=== PATIENT | female | born 1980 | race African-American/Black ===

== ENCOUNTER 2016-08-30 10:05 | Emergency (ER) | payer OTHER ==
[~2016-08-30] VITALS: Ht 175.3 cm; Wt 98.9 kg
[~2016-08-30 10:05] MED LIST: CIPROFLOXACIN500 M1 PO; CITRATE OF MAG296 ML PO; COLACE 100 MG100 MG PO; GLUCOPHAGE XR750 MG PO; MULTI-VITAMIN1 EAC5; NORCO 5-325 TA1 EACH PO; PRINZIDE 20-121 EACH PO; TAMSULOSIN HCL0.4 M1 PER TUBE; TAMSULOSIN HCL0.4 MG PO; ZOFRAN ODT4 MG PO
[2016-08-30 10:36] VITALS: BP 151/71
[2016-08-30] MEDS ORDERED: FLONASE 0.05%50 MCG NASAL (11:13)
[2016-08-30] MEDS ORDERED: IBUPROFEN 600600 M1 PO (11:13)
[2016-10-15] MEDS ORDERED: ZYRTEC10 M5 PO (18:43)
[2016-10-15] MEDS ORDERED: EMERGEN-C 1,01000 MG PO (18:43)
[2016-10-15] MEDS ORDERED: FLONASE 0.05%50 MCG NASAL (19:46)
[2016-10-15] MEDS ORDERED: VENTOLIN HFA 1818 GM INH (19:46)
== END 2016-08-30 11:21 | disposition home or self-care (01) ==
LOC: ER 10:05
DX: R07.89 Other chest pain (principal); J30.89 Other allergic rhinitis; Z87.442 Personal history of urinary calculi; Z95.5 Presence of coronary angioplasty implant and graft; Z88.6 Allergy status to analgesic agent; Z88.8 Allergy status to other drugs, medicaments and biological substances

== ENCOUNTER 2016-11-03 20:17 | Emergency (ER) | payer OTHER ==
[~2016-11-03] VITALS: Ht 175.3 cm; Wt 97.5 kg
[~2016-11-03 20:17] MED LIST changes: +EMERGEN-C 1,01000 MG PO; +FLONASE 0.05%50 MCG NASAL; +IBUPROFEN 600600 M1 PO; +VENTOLIN HFA 1818 GM INH; +ZYRTEC10 M5 PO
[2016-11-03] MEDS ORDERED: PENICILLIN V P500 MG PO (21:40)
[2016-11-03] MEDS ORDERED: PREDNISONE 20 M20 MG PO (21:40)
[2016-11-03] MEDS ORDERED: IBUPROFEN 800800 M1 PO (21:42)
[2016-11-03 22:04] VITALS: BP 120/86
== END 2016-11-03 22:04 | disposition home or self-care (01) ==
LOC: ER 20:17
DX: J02.0 Streptococcal pharyngitis (principal); Z95.5 Presence of coronary angioplasty implant and graft; Z88.5 Allergy status to narcotic agent

== ENCOUNTER 2016-12-09 19:50 | Emergency (ER) | payer OTHER ==
[~2016-12-09] VITALS: Ht 175.3 cm; Wt 97.5 kg
--- NOTE | ~2016-12-09 | EKG ---
[place] [address] [facility] [place] [address] ELECTROCARDIOGRAM REPORT Name: MASOOD MOYER Room #: DEP [facility]#: [id number] Admission: 12/09/16 Attend Phys: Discharge: 12/09/16 Date of : 78 Report #: [id number] THIS REPORT FOR: //name// [facility] ED Test Date: 2016-12-09 Test Time: 20:05:53 Pat Name: MASOOD MOYER Department: Room: Gender: F Correction Officer Head: JAVID : 1980 Requested By: Kae Whalen Order Number: [id number] MD: Dayton Cobb Measurements Intervals [facility] Rate: 93 P: 46 ME: 195 QRS: 39 QRSD: 81 T: 22 QT: 342 QTc: 426 Interpretive Statements Sinus rhythm Abnormal R-wave progression, early transition Baseline wander in lead(s) II,aVF No previous ECG available for comparison Electronically Signed On 12-11-2016 12:42:50 CDT by Dayton Cobb [email or web address] <ELECTRONICALLY SIGNED> By: Dayton Cobb MD, [facility] 12/11/16 1242 04 04 Dayton Cobb MD, FAC /EPI
[~2016-12-09 19:50] MED LIST changes: +IBUPROFEN 800800 M1 PO; +PENICILLIN V P500 MG PO; +PREDNISONE 20 M20 MG PO
[2016-12-09 20:29] LABS: ABSOLUTE NEUTROPHILS 10.4 thou/uL (1.4-8.2); BASOPHILS 0.7 % (0.0-2.0); EOSINOPHILS 0.8 % (0.0-3.0); HEMATOCRIT 34.9 % (37.0-47.0); HEMOGLOBIN 11.5 gm/dL (12.0-15.0); LYMPHOCYTES 26.4 % (24.0-44.0); MCH 29.4 pg (26.0-34.0); MCV 88.9 fL (80.0-100.0); MONOCYTES 3.2 % (1.0-8.0); PLATELET COUNT 387 thou/uL (150-400); POLYS 68.9 % (36.0-66.0); RBC 3.93 mil/uL (4.20-5.00); RDW 13.4 % (10.5-14.5); WBC 15.1 thou/uL (4.0-11.0)
[2016-12-09 20:30] LABS: MANUAL DIFF NO
[2016-12-09 20:32] LABS: CALCIUM 9.5 mg/dL (8.5-10.1); CREATININE 0.9 mg/dL (0.6-1.0); MAGNESIUM 1.6 mg/dL (1.8-2.4); POTASSIUM 3.5 mmol/L (3.5-5.1)
[2016-12-09] MEDS ORDERED: METFORMIN HCL500 MG PO (21:57)
[2016-12-09] MEDS ORDERED: ZESTORETIC 20-1 EAC3 PO (21:57)
[2016-12-09 22:18] VITALS: BP 122/70
== END 2016-12-09 22:19 | disposition home or self-care (01) ==
LOC: ER 19:50
PROVIDERS: Emergency Medicine
DX: R00.2 Palpitations (principal); E11.65 Type 2 diabetes mellitus with hyperglycemia; E83.42 Hypomagnesemia; D72.829 Elevated white blood cell count, unspecified; I49.3 Ventricular premature depolarization; Z87.442 Personal history of urinary calculi; Z95.5 Presence of coronary angioplasty implant and graft; Z88.5 Allergy status to narcotic agent

== ENCOUNTER 2017-05-20 21:14 | Emergency (ER) | payer BC, OTHER ==
[~2017-05-20] VITALS: Ht 175.3 cm; Wt 86.2 kg
--- NOTE | ~2017-05-20 | EKG ---
[place] [address] [facility] [place] [address] ELECTROCARDIOGRAM REPORT Name: MASOOD MOYER [facility] [id number] Admission: 05/20/17 Attend Phys: Discharge: 05/20/17 Date of : 78 Report #: [id number] THIS REPORT FOR: //name// [facility] ED Test Date: 2017-05-20 Test Time: 21:23:39 Pat Name: MASOOD MOYER Department: Room: Gender: F [employer]: : 1980 Requested By: Alejandro Pleitez Order Number: [id number] MD: Anthony Head Measurements Intervals [place] Rate: 79 P: 14 AL: 220 QRS: 17 QRSD: 80 T: 19 QT: 359 QTc: 412 Interpretive Statements Sinus rhythm Prolonged AL interval Compared to ECG 12/09/2016 20:05:53 First degree AV block now present Electronically Signed On 05-21-2017 10:40:02 CDT by Anthony Head [email or web address] <ELECTRONICALLY SIGNED> By: Anthony Head MD 05/21/17 1040 [id number] [id number] Anthony Head MD /YANI
[~2017-05-20 21:14] MED LIST changes: +METFORMIN HCL500 MG PO; +ZESTORETIC 20-1 EAC3 PO
[2017-05-20 22:05] LABS: ABSOLUTE NEUTROPHILS 7.6 thou/uL (1.4-8.2); BASOPHILS 0.4 % (0.0-2.0); EOSINOPHILS 1.8 % (0.0-3.0); HEMATOCRIT 35.9 % (37.0-47.0); HEMOGLOBIN 11.8 gm/dL (12.0-15.0); LYMPHOCYTES 35.7 % (24.0-44.0); MCH 29.3 pg (26.0-34.0); MCHC 32.8 g/dL (28.0-37.0); MCV 89.4 fL (80.0-100.0); MONOCYTES 3.5 % (1.0-8.0); PLATELET COUNT 356 thou/uL (150-400); POLYS 58.6 % (36.0-66.0); RBC 4.01 mil/uL (4.20-5.00); RDW 13.4 % (10.5-14.5); WBC 12.9 thou/uL (4.0-11.0)
[2017-05-20 22:12] LABS: MANUAL DIFF NO
[2017-05-20 22:18] LABS: AMP/METHAMP Negative (Negative); BARBITURATES Negative (Negative); BENZODIAZEPINES Negative (Negative); COCAINE Negative (Negative); METHADONE Negative (Negative); OPIATES Negative (Negative); PCP Negative (Negative); THC Negative (Negative)
[2017-05-20 22:20] LABS: ANION GAP 9 mmol/L (7-16); BUN 16 mg/dL (7-18); CALCIUM 9.9 mg/dL (8.5-10.1); CHLORIDE 100 mmol/L (98-107); CO2 27 mmol/L (21-32); CREATININE 0.9 mg/dL (0.6-1.0); GLUCOSE 162 mg/dL (74-106); POTASSIUM 3.9 mmol/L (3.5-5.1); SODIUM 136 mmol/L (136-145)
[2017-05-20 22:28] LABS: ALKALINE PHOSPHATASE 81 U/L (46-116); MAGNESIUM 1.6 mg/dL (1.8-2.4); SGOT 27 U/L (15-37); SGPT 19 U/L (30-65); TOTAL BILIRUBIN 0.5 mg/dL (<0.1-1.0); TOTAL PROTEIN 8.8 g/dL (6.4-8.2); TROPONIN-I < 0.04 ng/mL (<0.04-0.07)
[2017-05-20] MEDS ORDERED: MAG-OXIDE400 MG PO (22:50)
[2017-05-20 23:17] VITALS: BP 130/91
== END 2017-05-20 23:18 | disposition home or self-care (01) ==
LOC: ER 21:14
PROVIDERS: Emergency Medicine
DX: I49.3 Ventricular premature depolarization (principal); E11.9 Type 2 diabetes mellitus without complications; E83.42 Hypomagnesemia; Z88.8 Allergy status to other drugs, medicaments and biological substances; I10 Essential (primary) hypertension